=== PATIENT | female | born 1990 | race Caucasian/White ===

== ENCOUNTER 2019-12-18 09:14 | Emergency (ER) | payer OTHER ==
[~2019-12-18] VITALS: Ht 160 cm; Wt 72.6 kg
[~2019-12-18 09:14] MED LIST: 8 HOUR PAIN RE650 M1 PO; AMOXICILLIN 50500 M1 PO; CIPROFLOXACIN500 M1 PO; FLEXERIL PO; MACROBID 100 M100 M1 PO; MACROBID 100 M100 M3 PO; MEDROLDOSEPACK PO; NORCO 5-325 TA1 EACH PO; PRENATAL PO; VENTOLIN HFA 1818 GM INH
[2019-12-18 10:05] VITALS: BP 125/73
== END 2019-12-18 10:05 | disposition home or self-care (01) ==
LOC: ER 09:14
DX: J02.9 Acute pharyngitis, unspecified (principal); Z79.899 Other long term (current) drug therapy